=== PATIENT | female | born 1975 ===

== ENCOUNTER 2018-11-17 11:20 | Emergency (ER) | payer OTHER ==
[~2018-11-17] VITALS: Ht 160 cm; Wt 90.7 kg
== END 2018-11-17 14:52 | disposition home or self-care (01) ==
LOC: ER 11:20
DX: S52.592A Other fractures of lower end of left radius, initial encounter for closed fracture (principal); W18.39XA Other fall on same level, initial encounter; Y93.89 Activity, other specified; Y92.59 Other trade areas as the place of occurrence of the external cause; Y99.8 Other external cause status